=== PATIENT | male | born 1990 | race Caucasian/White ===

== ENCOUNTER 2023-02-06 07:29 | Emergency (ER) | payer OTHER ==
[2023-02-06 07:55] VITALS: BP 118/85; PULSE 59; RESP 18; TEMP 98.6; BMI 26.2
== END 2023-02-06 08:35 | disposition home or self-care (01) ==
LOC: FER 07:29
PROC: 0HQGXZZ Repair Left Hand Skin, External Approach (ICD-10-PCS; principal; 2023-02-06)
DX: S61.213A Laceration without foreign body of left middle finger without damage to nail, initial encounter (principal); W26.0XXA Contact with knife, initial encounter; Y93.G1 Activity, food preparation and clean up
CPT/HCPCS: 99282-25